=== PATIENT | male | born 1985 ===

== ENCOUNTER 2018-12-13 19:15 | Emergency (ER) | payer OTHER ==
[2018-12-13 19:45] VITALS: BMI 22.9
[2018-12-13 19:46] VITALS: BP 106/65; RESP 18; TEMP 98.4; O2SAT 99
--- NOTE | 2018-12-13 20:00 | ED PDOC ---
Arrival/HPI - General Chief Complaint: Trauma Time Seen by Provider: 12/13/18 19:17 Historian: Patient - History of Present Illness Narrative History of Present Illness (Text): 12/13/18 20:14 Patient is a 33 yo male with no PMH who presents after tripping at work. Patient states that he works at a [employer] and he tripped and twisted his left ankle while carrying boxes. He states that he fell backwards. He thinks he "blacked out" for less than a minute. He denies significant neck pain. Denies headache. He says that the pain is located on either side of his left ankle. He does not have full ROM secondary to pain. He also states there is some numbness/tingling from the ankle down. Denies swelling or lesions. Time/Duration: 1-3 hours Symptom Onset: Sudden Symptom Course: Unchanged Context: Slipped Past Medical History - Provider Review Nursing Documentation Reviewed: Yes - Past History Past History: No Previous - Infectious Disease Hx of Infectious Diseases: None - Tetanus Immunization Tetanus Immunization: Unknown - Psychiatric Hx Substance Use: No - Anesthesia Hx Anesthesia: No Family/Social History Family/Social History: Unknown Family HX Smoking Status: Former Smoker Hx Alcohol Use: No Hx Substance Use: No Allergies/Home Meds Allergies/Adverse Reactions: Allergies No Known Allergies Allergy (Verified 12/13/18 19:45) Review of Systems - Review of Systems Constitutional: absent: Fatigue, Fevers Eyes: absent: Vision Changes ENT: absent: Hearing Changes, Tinnitus Respiratory: absent: SOB, Cough Cardiovascular: absent: Chest Pain, Palpitations Gastrointestinal: absent: Abdominal Pain, Nausea, Vomiting Genitourinary Male: absent: Dysuria, Hematuria Musculoskeletal: Arthralgias, Neck Pain. absent: Joint Swelling Skin: absent: Rash, Pruritis, Skin Lesions, Laceration Neurological: absent: Headache, Dizziness, Focal Weakness Endocrine: absent: Diaphoresis Hemo/Lymphatic: absent: Adenopathy Physical Exam Vital Signs Temp Pulse Resp BP Pulse Ox 12/13/18 19:45 98.4 F 56 L 18 106/65 99 Temperature: Afebrile Blood Pressure: Normal Pulse: Bradycardic Respiratory Rate: Normal Appearance: Positive for: Non-Toxic, Comfortable Pain Distress: Mild Mental Status: Positive for: Alert and Oriented X 3 - Systems Exam Head: Present: Atraumatic, Normocephalic. No: Tenderness, Contusion, Swelling, Abrasion Pupils: Present: PERRL Extroacular Muscles: Present: EOMI Conjunctiva: Present: Normal Mouth: Present: Moist Mucous Membranes Neck: Present: Normal Range of Motion, Paraspinal Tenderness (mild). No: MIDLINE TENDERNESS, Lymphadenopathy Respiratory/Chest: Present: Clear to Auscultation, Good Air Exchange Cardiovascular: Present: Regular Rate and Rhythm, Normal S1, S2 Lower Extremity: Present: Normal Inspection, NORMAL PULSES, Normal ROM (passive), Tenderness (L medial and lateral malleoli), Neurovascularly Intact. No: Edema, Erythema, Deformity, Temperature Abnormalties Neurological: Present: GCS=15, CN II-XII Intact, Speech Normal Skin: Present: Warm, Dry, Normal Color Psychiatric: Present: Alert, Oriented x 3, Normal Insight, Normal Concentration Medical Decision Making Re-evaluation Time: 21:16 Reassessment Condition: Re-examined, Unchanged - RAD Interpretation Radiology Orders: L ankle XR- no acute findings - Medication Orders Current Medication Orders: 12/13/18 20:23 Motrin 600 mg PO Disposition/Present on Arrival - Present on Arrival Any Indicators Present on Arrival: No History of DVT/PE: No History of Uncontrolled Diabetes: No Urinary Catheter: No History of Decub. Ulcer: No History Surgical Site Infection Following: None - Disposition Have Diagnosis and Disposition been Completed?: Yes Diagnosis: Left ankle sprain Disposition: HOME/ ROUTINE Disposition Time: 21:14 Patient Plan: Discharge Patient Problems: Current Active Problems Problem Status Onset Left ankle sprain Acute Condition: STABLE Discharge Instructions (ExitCare): Ankle Sprain (DC) Prescriptions: Naproxen 500 mg PO BID PRN #10 tab PRN Reason: Pain, Moderate (4-7) Referrals: [facility] [Outside] - Follow up with primary Forms: [employer] (Mongolian)
[2018-12-13 21:53] VITALS: PULSE 60
--- NOTE | 2018-12-14 08:19 | RAD ---
Date of service: 12/13/2018 PROCEDURE: Left Ankle Radiographs. HISTORY: L ankle pain COMPARISON: None available. TECHNIQUE: 3 views obtained. FINDINGS: BONES: Normal. No fracture. JOINTS: Normal. No osteoarthritis. Ankle mortise maintained. Talar dome intact SOFT TISSUES: Normal. OTHER FINDINGS: None. IMPRESSION: Normal left ankle radiographs.
== END 2018-12-13 21:53 | disposition home or self-care (01) ==
LOC: ED 19:15
DX: S93.402A Sprain of unspecified ligament of left ankle, initial encounter (principal); W01.0XXA Fall on same level from slipping, tripping and stumbling without subsequent striking against object, initial encounter; Y92.69 Other specified industrial and construction area as the place of occurrence of the external cause; Y99.0 Civilian activity done for income or pay